=== PATIENT | male | born 1950 | race Caucasian/White ===

== ENCOUNTER 2016-11-12 08:51 | Day surgery (SDC) | payer OTHER ==
[~2016-11-12] VITALS: Ht 157.5 cm; Wt 75.0 kg
[2016-11-12] VITALS (21 sets, daily range): BP systolic 119–175; BP diastolic 65–83; PULSE 64–77; RESP 16–28; Ht 157.5 cm; Wt 75.0 kg
[2016-11-12] MEDS ORDERED: LOSA25TA5 PO (09:36)
[2016-11-12] MEDS ORDERED: HYDR-906 PO (09:36)
[2016-11-12] MEDS ORDERED: ATOR40TA68 PO (09:36)
[2016-11-12] MEDS ORDERED: ASPI325T4 PO (09:36)
[2016-11-12] MEDS ORDERED: CARV12.598 PO (09:36)
[2016-11-12] MEDS ORDERED: ACET-2047 PO (09:36)
[2016-11-12] MEDS ORDERED: PANT40TA3 PO (09:39)
[2016-11-12] MEDS ORDERED: ONDA-43 IV (09:39)
[2016-11-12] MEDS ORDERED: NITR0.4T32 SL (09:41)
[2016-11-12] MEDS ORDERED: NITROGLYCERIN (IC) 100 MCG/ML INJ ONE (09:57)
[2016-11-12] MEDS ORDERED: HEPARIN 1000 UNITS/NS (A-LINE) 1,000 ML ONE (09:57)
[2016-11-12] MEDS ORDERED: HEPARIN 1000 UNITS/ML 10 ML INJ ONE (09:57)
[2016-11-12] MEDS ORDERED: FENTAnyl 50 MCG/ML VIAL ONE (09:57)
[2016-11-12] MEDS ORDERED: LIDOCAINE 1% (MDV) 20 ML INJ ONE (09:57)
[2016-11-12] MEDS ORDERED: VERAPAMIL 5 MG INJ ONE (09:57)
[2016-11-12] MEDS ORDERED: MIDAZOLAM 1 MG/ML 2 ML INJ ONE (09:57)
[2016-11-12] MEDS ORDERED: IODIXANOL LOCM 100 ML BTL ONE (09:57)
[2016-11-12] MEDS ORDERED: morphine 2 MG INJ IV PRN (11:00)
[2016-11-12] MEDS ORDERED: ONDANSETRON 4 MG INJ IV PRN (11:00)
--- NOTE | 2016-11-12 11:04 | OPR ---
Date/Time of Note Date/Time of Note DATE: 11/12/16 TIME: 10:54 Operative Report Free Text/Dictation Procedure Date:11/12/2016 [facility] Rad[facility] Operator/Navigator/surgeon:Jerald Gustafson MD. Procedures Performed: 1)Left heart catheterization with selective left and right coronary angiography. 2)Left ventricle angiography Pre-operative Diagnosis:NSTEMI Post-operative Diagnosis:NSTEMI, normal coronaries Indications:65 yo M with a h/o HTN, HL, who presented with dyspnea and was found to have a trop up to 0.2. Cardiac cath was deemed necessary for evaluation of coronaries, Description of Procedure: After informed consent, the patient was brought to the cardiac catheterization lab. The procedure site was prepped and draped in usual manner. The patient was premedicated with versed 1 mg and fentanyl 25 mcg. 3 mL lidocaine was injected into the right wrist. Next using the posterior wall technique, the 6/ 5 romansh sheath was inserted into the right radial artery. Next using the JL3.5 and Chris, selective angiography of the left and right coronary arteries were obtained. The pigtail was then advanced into the ventricle and hemodynamics obtained. Left ventricle angiography was obtained. Next all equipment was removed and hemostasis was obtained by TR band. Findings: Anatomy/Hemodynamics: Left main:normal LAD:normal Diagonal:normal Circumflex: dominant, normal Obtuse marginal:normal RCA:normal, non-dominant LV angiography: EF >60%, no wall motion abnormalities LV-Ao: no gradient LVEDP: 11 mmHg Estimated blood loss<10 mL. Specimen: none Complications: none Assessment: NSTEMI Normal coronaries Plan: -observe in PACU, then transfer back to [facility] for d/c today -continue ASA and antihypertensive for now Surgeon see signature line JERALD GUSTAFSON Nov 12, 2016 11:04
== END 2016-11-12 14:00 | disposition other institution (70) ==
LOC: CCL 08:51
PROVIDERS: ATTEND Internal Medicine Interventional Cardiology
DX: I21.4 Non-ST elevation (NSTEMI) myocardial infarction (principal); I10 Essential (primary) hypertension; E78.5 Hyperlipidemia, unspecified; Z79.82 Long term (current) use of aspirin
CPT/HCPCS: 93458; C1887; J1644; J2250; J3010; Q9967